=== PATIENT | male | born 1945 | race Hispanic/Latino ===

== ENCOUNTER → 2018-09-07 | Outpatient (CLI) | payer MEDICARE | END | disposition home or self-care (01) | LOC: OIH 13:08 | PROVIDERS: ATTEND Family Medicine | DX: M54.5 Low back pain (principal); R10.31 Right lower quadrant pain | CPT/HCPCS: 72070; 72100 ==

== ENCOUNTER → 2018-09-08 | Outpatient (CLI) | payer MEDICARE | END | disposition home or self-care (01) | LOC: RAH 10:24 | PROVIDERS: ATTEND Family Medicine | DX: K76.0 Fatty (change of) liver, not elsewhere classified (principal) | CPT/HCPCS: 76700 ==

== ENCOUNTER 2018-09-25 21:51 | Emergency (ER) | payer MEDICARE ==
[2018-09-25 22:23] LABS: APPEARANCE,URINE Cloudy (CLEAR); BASOPHILS % (AUTO) 0.6 % (0.0-5.0); BILIRUBIN,URINE Negative (NEGATIVE); COLOR,URINE Dark Yellow (YELLOW); EOSINOPHILS % (AUTO) 1.1 % (0.0-8.0); GLUCOSE, URINE (UA) Negative (NEGATIVE); HEMATOCRIT 41.2 % (42-54); KETONES,URINE Trace mg/dL (NEGATIVE); LEUKOCYTE ESTERASE ,URINE Negative (NEGATIVE); LYMPHOCYTES % (AUTO) 16.5 % (21.0-51.0); MEAN CORPUSCULAR HEMOGLOBIN 30.4 pg (27.0-33.0); MEAN CORPUSCULAR HGB CONC 33.8 g/dL (32.0-36.0); MEAN CORPUSCULAR VOLUME 89.8 fL (79-99); MONOCYTES % (AUTO) 21.6 % (3.0-13.0); NEUTROPHILS % (AUTO) 60.2 % (40.0-77.0); NITRATE,URINE Negative (NEGATIVE); NUCLEATED RED BLOOD CELLS 0.1 % (0.0-0.19); OCCULT BLOOD,URINE Trace (NEGATIVE); PH,URINE 5.5 (5.0-8.0); PLATELET COUNT (AUTO) 238 K/uL (130-400); PROTEIN,URINE POS 1+ mg/dL (NEGATIVE); RED BLOOD CELL COUNT(AUTO) 4.58 MIL/uL (4.50-6.20); RED CELL DISTRIBUTION WIDTH 14.5 % (11.0-15.5); WHITE BLOOD COUNT (AUTO) 5.1 K/uL (4.8-10.8)
[2018-09-25 22:29] LABS: CREATININE 1.3 mg/dL (0.5-1.5); POTASSIUM 3.6 mmol/L (3.5-5.1)
[2018-09-25 22:34] LABS: ALBUMIN 3.1 g/dL (3.5-5.0); BILIRUBIN,TOTAL 0.4 mg/dL (0.2-1.0)
[2018-09-25 22:46] LABS: RBC,URINE 0-1 /HPF (0-1); WBC,URINE 0-1 /HPF (0-1)
[2018-09-25 22:47] LABS: BACTERIA,URINE Few /HPF (None Seen); MUCUS,URINE Many LPF (None Seen); SQUAMOUS EPITHELIAL CELL,UR 0-2 /HPF (0-2)
[2018-09-25] MEDS ORDERED: ONDANSETRON HCL 4 MG/2 ML VIAL ONE (22:56)
[2018-09-25] MEDS ORDERED: MORPHINE SULFATE 4 MG/1ML SYG ONE (22:57)
== END 2018-09-26 00:33 | disposition home or self-care (01) ==
LOC: EDH 21:51
DX: R10.9 Unspecified abdominal pain (principal); M54.6 Pain in thoracic spine; I10 Essential (primary) hypertension; E66.9 Obesity, unspecified; Z87.891 Personal history of nicotine dependence; Z68.41 Body mass index [BMI] 40.0-44.9, adult
CPT/HCPCS: 36415; 74176; 80053; 81001; 83690; 85025; 96374; 96375; 99285; J2270; J2405

== ENCOUNTER → 2018-10-03 | Outpatient (CLI) | payer MEDICARE ==
[~2018-10-03] MED LIST: IOHEXOL 350 MG/ML 100ML INFUS..BTL IV ONE
== END | disposition home or self-care (01) ==
LOC: RAH 09:04
PROVIDERS: ATTEND Family Medicine
DX: K44.9 Diaphragmatic hernia without obstruction or gangrene (principal); C61 Malignant neoplasm of prostate; R91.1 Solitary pulmonary nodule
CPT/HCPCS: 74170; Q9967

== ENCOUNTER 2020-04-29 11:07 | Observation (INO) | payer OTHER, MEDICARE ==
[~2020-04-29] VITALS: Ht 157.5 cm; Wt 106.9 kg
[2020-04-29] MEDS ORDERED: ONDANSETRON HCL 4 MG/2 ML VIAL ONE (11:56)
[2020-04-29] MEDS ORDERED: KETOROLAC TROMETHAMINE 15MG/ML ONE ×2 (11:56→23:37)
[2020-04-29] MEDS ORDERED: MORPHINE SULFATE 4 MG/1ML SYG ONE (11:57)
[2020-04-29 12:38] LABS: BASOPHILS % (AUTO) 0.6 % (0.0-5.0); EOSINOPHILS % (AUTO) 1.9 % (0.0-8.0); HEMATOCRIT 46.2 % (42-54); LYMPHOCYTES % (AUTO) 15.7 % (21.0-51.0); MEAN CORPUSCULAR HEMOGLOBIN 29.2 pg (27.0-33.0); MEAN CORPUSCULAR HGB CONC 32.5 g/dL (32.0-36.0); MEAN CORPUSCULAR VOLUME 90.1 fL (79-99); MONOCYTES % (AUTO) 8.6 % (3.0-13.0); NEUTROPHILS % (AUTO) 72.7 % (40.0-77.0); PLATELET COUNT (AUTO) 260 K/uL (130-400); RED BLOOD CELL COUNT(AUTO) 5.13 MIL/uL (4.50-6.20); WHITE BLOOD COUNT (AUTO) 8.3 K/uL (4.8-10.8)
[2020-04-29 12:51] LABS: CREATININE 1.2 mg/dL (0.5-1.5); POTASSIUM 4.2 mmol/L (3.5-5.1)
[2020-04-29 12:55] LABS: BILIRUBIN,TOTAL 0.6 mg/dL (0.2-1.0); TOTAL PROTEIN, SERUM 7.9 g/dL (6.0-8.3)
[2020-04-29 13:38] LABS: APPEARANCE,URINE Clear (CLEAR); BILIRUBIN,URINE Negative (NEGATIVE); GLUCOSE, URINE (UA) Negative (NEGATIVE); KETONES,URINE Negative (NEGATIVE); LEUKOCYTE ESTERASE ,URINE Negative (NEGATIVE); NITRATE,URINE Negative (NEGATIVE); OCCULT BLOOD,URINE Negative (NEGATIVE); PROTEIN,URINE Negative (NEGATIVE); UROBILINOGEN,URINE 0.2 mg/dL (0.2-1.0)
[2020-04-29 13:41] LABS: COLOR,URINE COLORLESS (YELLOW)
[2020-04-29] MEDS ORDERED: HYDROCODONE/ACETAMINOPHEN 5/325 MG TAB ONE (13:56)
[2020-04-29] MEDS ORDERED: DEXAMETHASONE SOD PHOSPHATE 10MG/ML 1ML VIAL ONE (15:03)
[2020-04-29] MEDS ORDERED: HYDROMORPHONE HCL 0.5 MG/0.5 ML ML ONE (15:04)
[2020-04-29] MEDS ORDERED: CYCLOBENZAPRINE HCL 10 MG TABLET ONE ×2 (15:04→23:38)
[2020-04-29] MEDS ORDERED: HYDRALAZINE HCL 20 MG/ML VIAL ONE (18:48)
[2020-04-29] MEDS ORDERED: HYDROMORPHONE 1 MG/1 ML AMP ONE (19:16)
[2020-04-29] MEDS ORDERED: HYDROMORPHONE 1 MG/1 ML AMP IVP PRN (19:45)
[2020-04-29] MEDS ORDERED: LABETALOL 20 MG/4 ML DISP.SYRIN IV PRN (19:45)
[2020-04-29] MEDS ORDERED: KETOROLAC TROMETHAMINE 15MG/ML IV PRN (20:30)
[2020-04-29] MEDS ORDERED: ACETAMINOPHEN 325 MG TAB PO PRN (20:30)
[2020-04-29] MEDS ORDERED: CYCLOBENZAPRINE HCL 10 MG TABLET PO PRN (20:30)
[2020-04-29] MEDS ORDERED: ONDANSETRON HCL 4 MG/2 ML VIAL IVP PRN (20:30)
[2020-04-29] MEDS: IBUPROFEN 800 MG TAB PO SCH (21:00)
[2020-04-29] MEDS: CYCLOBENZAPRINE HCL 10 MG TABLET PO SCH (21:00)
[2020-04-29] MEDS: FAMOTIDINE 20MG TAB 20 MG TAB PO SCH (21:30)
[2020-04-29] MEDS ORDERED: IBUPROFEN 800 MG TAB ONE (23:37)
[2020-04-30] VITALS (7 sets, daily range): BP systolic 113–148; BP diastolic 67–125
[2020-04-30] MEDS ORDERED: CLONIDINE HCL 0.1 MG TABLET ONE (01:50)
[2020-04-30] MEDS ORDERED: ASPI-1197 PO (02:25)
[2020-04-30] MEDS ORDERED: ESOM40CA54 PO (02:25)
[2020-04-30] MEDS ORDERED: HYDR12.54 PO (02:25)
[2020-04-30] MEDS ORDERED: ATOR40TA71 PO (02:25)
[2020-04-30] MEDS ORDERED: LOSA50TA2 PO (02:25)
[2020-04-30] MEDS ORDERED: MULT-1367 PO (02:25)
[2020-04-30] MEDS ORDERED: LEVO88CA4 PO (02:25)
[2020-04-30] MEDS ORDERED: CLONIDINE HCL 0.1 MG TABLET PO PRN (03:00)
[2020-04-30] MEDS ORDERED: KETOROLAC TROMETHAMINE 15MG/ML IV PRN (03:15)
[2020-04-30 05:28] LABS: HEMATOCRIT 43.5 % (42-54); LYMPHOCYTES % (AUTO) 7.8 % (21.0-51.0); MEAN CORPUSCULAR HEMOGLOBIN 29.3 pg (27.0-33.0); MEAN CORPUSCULAR HGB CONC 32.6 g/dL (32.0-36.0); MEAN CORPUSCULAR VOLUME 89.9 fL (79-99); MONOCYTES % (AUTO) 4.6 % (3.0-13.0); NEUTROPHILS % (AUTO) 87.2 % (40.0-77.0); PLATELET COUNT (AUTO) 252 K/uL (130-400); RED BLOOD CELL COUNT(AUTO) 4.84 MIL/uL (4.50-6.20); WHITE BLOOD COUNT (AUTO) 9.2 K/uL (4.8-10.8)
[2020-04-30 05:48] LABS: CREATININE 1.2 mg/dL (0.5-1.5)
[2020-04-30] MEDS: CYCLOBENZAPRINE HCL 10 MG TABLET PO SCH ×3 (06:02→20:57)
[2020-04-30] MEDS ORDERED: LACTULOSE 20 GM/30 ML UDCUP PO PRN (06:15)
[2020-04-30 06:17] LABS: HEMOGLOBIN A1C 6.3 % (4.0-6.0)
[2020-04-30] MEDS: IBUPROFEN 800 MG TAB PO SCH ×2 (08:47→20:57)
[2020-04-30] MEDS: HEPARIN SODIUM 5000UNIT/ML 1ML VIAL SQ SCH ×2 (11:11→21:02)
[2020-04-30] MEDS: FAMOTIDINE 20MG TAB 20 MG TAB PO SCH (20:57)
[2020-04-30] MEDS ORDERED: ATORVASTATIN CALCIUM 40 MG TABLET PO SCH (21:00)
[2020-05-01 03:52] VITALS: BP 132/81
[2020-05-01] MEDS: CYCLOBENZAPRINE HCL 10 MG TABLET PO SCH (04:45)
[2020-05-01 05:46] LABS: HEMATOCRIT 41.5 % (42-54); MEAN CORPUSCULAR HEMOGLOBIN 29.1 pg (27.0-33.0); MEAN CORPUSCULAR HGB CONC 31.6 g/dL (32.0-36.0); MEAN CORPUSCULAR VOLUME 92.2 fL (79-99); RED BLOOD CELL COUNT(AUTO) 4.5 MIL/uL (4.50-6.20); RED CELL DISTRIBUTION WIDTH 14.4 % (11.0-15.5); WHITE BLOOD COUNT (AUTO) 7.3 K/uL (4.8-10.8)
[2020-05-01 05:57] LABS: CREATININE 1.2 mg/dL (0.5-1.5); POTASSIUM 4.3 mmol/L (3.5-5.1)
[2020-05-01] MEDS ORDERED: LEVOTHYROXINE 88 MCG TABLET PO SCH (06:30)
[2020-05-01] MEDS ORDERED: NON-FORMULARY MEDICATION 1 EACH (Levothyroxine Sodium (Levothyroxine) 88 MCG) PO SCH (07:30)
[2020-05-01 08:11] VITALS: BP 140/71
[2020-05-01] MEDS: IBUPROFEN 800 MG TAB PO SCH (08:14)
[2020-05-01] MEDS: HEPARIN SODIUM 5000UNIT/ML 1ML VIAL SQ SCH (08:19)
[2020-05-01] MEDS ORDERED: NON-FORMULARY MEDICATION 1 EACH (Multivitamin 1 EACH) PO SCH (09:00)
[2020-05-01] MEDS ORDERED: HYDROCHLOROTHIAZIDE 25 MG TABLET PO SCH (09:00)
[2020-05-01] MEDS ORDERED: NON-FORMULARY MEDICATION 1 EACH (Hydrochlorothiazide 12.5 MG) PO SCH (09:00)
[2020-05-01] MEDS ORDERED: LOSARTAN 50 MG TABLET PO SCH (09:00)
[2020-05-01] MEDS ORDERED: MULTIVITAMIN TABLET PO SCH (09:00)
[2020-05-01 11:40] VITALS: BP 106/65
== END 2020-05-01 14:00 | disposition home or self-care (01) ==
LOC: EDH 11:07 → EDHIP 19:30 → 3AH 04-30 00:55
PROVIDERS: ADMIT Internal Medicine Critical Care Medicine; ATTEND Internal Medicine Critical Care Medicine
DX: M51.26 Other intervertebral disc displacement, lumbar region (principal); I10 Essential (primary) hypertension; E78.5 Hyperlipidemia, unspecified; E11.9 Type 2 diabetes mellitus without complications; E78.00 Pure hypercholesterolemia, unspecified; E66.01 Morbid (severe) obesity due to excess calories; Z85.46 Personal history of malignant neoplasm of prostate; Z79.899 Other long term (current) drug therapy; Z68.41 Body mass index [BMI] 40.0-44.9, adult
CPT/HCPCS: 36415 ×3; 72148; 74176; 80048 ×2; 80053; 81003; 82550; 83036; 84484; 85025 ×2; 85027; 93005; 96372 ×2; 96374; 97161; 99285; A4600; G0378 ×43; G8978; G8979; G8980; G8981; G8982; G8983; J0360; J1100; J1170 ×3; J1644 ×3; J1885 ×2; J2270; J2405